=== PATIENT | female | born 1975 | race American Indian/Alaskan Native ===

== ENCOUNTER 2017-04-26 14:47 | Emergency (ER) | payer MEDICAID ==
[~2017-04-26] VITALS: Ht 162.6 cm; Wt 75.0 kg
[~2017-04-26 14:47] MED LIST: FERR325T20 PO
[2017-04-26] MEDS ORDERED: METR500T PO (15:37)
[2017-04-26] MEDS ORDERED: MECLIZINE CHEWABLE 25 MG TAB ONE (15:58)
[2017-04-26] MEDS ORDERED: SODIUM CHLORIDE 0.9% 1,000ML IVBOLUS ONE (16:00)
[2017-04-26 16:23] LABS: HEMATOCRIT 39.2 % (34.6-47.8); HEMOGLOBIN 12.8 g/dL (11.7-16.4); WHITE BLOOD COUNT 9.1 x10^3/uL (3.4-10)
[2017-04-26 16:31] LABS: BLOOD UREA NITROGEN 11 mg/dL (7-18)
[2017-04-26] MEDS ORDERED: POTASSIUM CHLORIDE 20 MEQ TAB.ER.PRT ONE (16:58)
[2017-04-26] MEDS ORDERED: MECLIZINE CHEWABLE 25 MG TAB PO ONE (17:00)
[2017-04-26] MEDS ORDERED: SODIUM CHLORIDE FLUSH 10ML SYR IVF ONE (17:00)
[2017-04-26] MEDS ORDERED: POTASSIUM CHLORIDE 10% 40 MEQ/30 ML UDC PO ONE (18:00)
[2017-04-26] MEDS ORDERED: MAGNESIUM SULFATE 1 GM in SODIUM CHLORIDE 0.9% 50 ML IV ONE (18:00)
[2017-04-26] MEDS ORDERED: POTASSIUM CHLORIDE 20 MEQ TAB.ER.PRT PO ONE (18:00)
[2017-04-26 18:23] VITALS: BP 100/58
== END 2017-04-26 18:25 | disposition home or self-care (01) ==
LOC: ED 15:56
DX: E86.0 Dehydration (principal); E87.6 Hypokalemia
CPT/HCPCS: 36415; 80048; 82040; 84703; 85025; 96361; 96365; 99284; J3475; J7030

== ENCOUNTER 2017-07-08 20:02 | Emergency (ER) | payer MEDICAID ==
[~2017-07-08] VITALS: Ht 162.6 cm; Wt 76.0 kg
[~2017-07-08 20:02] MED LIST changes: +FERR325T18 PO; -FERR325T20 PO; +METR500T PO
[2017-07-08 20:04] VITALS: BP 116/75
[2017-07-08 20:39] LABS: HCG UR LOT HCG7030192
[2017-07-08 20:59] LABS: HCG UR OBC PASS
[2017-07-08 21:13] LABS: HEMATOCRIT 37.5 % (34.6-47.8); HEMOGLOBIN 12.5 g/dL (11.7-16.4); WHITE BLOOD COUNT 8.2 x10^3/uL (3.4-10)
[2017-07-08 21:21] LABS: ASPARTATE AMINO TRANSFERASE 12 U/L (15-37); BLOOD UREA NITROGEN 16 mg/dL (7-18)
[2017-07-08] MEDS ORDERED: MAALOX/HYOSCYAMINE/LIDOCAINE 45 ML BTL PO ONE (22:00)
[2017-07-08] MEDS ORDERED: CEPHALEXIN 500 MG CAPSULE PO ONE (22:00)
[2017-07-08] MEDS ORDERED: SODIUM CHLORIDE FLUSH 10ML SYR IVF ONE (22:00)
[2017-07-08] MEDS ORDERED: MAALOX/HYOSCYAMINE/LIDOCAINE 45 ML BTL ONE (22:05)
[2017-07-08] MEDS ORDERED: CEPHALEXIN 500 MG CAPSULE ONE (22:10)
== END 2017-07-08 22:20 | disposition home or self-care (01) ==
LOC: ED 21:13
DX: K29.00 Acute gastritis without bleeding (principal)
CPT/HCPCS: 36415; 76700; 80053; 81003; 81025; 83690; 85025; 99285

== ENCOUNTER 2019-02-26 21:43 | Emergency (ER) | payer MEDICAID ==
[~2019-02-26] VITALS: Ht 162.6 cm; Wt 78.3 kg
[2019-02-26 22:20] LABS: HCG UR SG 1.012 (1.003-1.030); MICROSCOPIC NOT IND
[2019-02-26 22:23] LABS: CULTURE INDICATED? NO
--- NOTE | 2019-02-26 22:56 | NUR ---
FIRST CONTACT WITH PT. PT HERE FOR LOWER BACK AND ABD PAIN AND PAIN WITH URINATION THAT STARTED TODAY. PT'S AOX4. RESPS EVEN AND UNLABORED. PT DENIES N/V/D AT THIS TIME. BP/SPO2 MONITORS IN PLACE. CALL LIGHT WITHIN REACH.
--- NOTE | 2019-02-26 23:11 | NUR ---
PT TO CT NOW.
[2019-02-26 23:14] LABS: BASOPHILS # (AUTO) 0.09 x10^3/uL (0-0.1); BASOPHILS % (AUTO) 1 % (0-1); EOSINOPHILS # (AUTO) 0.34 x10^3/uL (0-0.4); EOSINOPHILS % (AUTO) 4 % (1-7); LYMPHOCYTES # (AUTO) 2.19 x10^3/uL (1-3.4); LYMPHOCYTES % (AUTO) 27 % (22-44); MD NO; MEAN CORPUSCULAR HEMOGLOBIN 25.3 pg (27.0-34.8); MEAN CORPUSCULAR HGB CONC 31.9 g/dL (32.4-35.8); MEAN CORPUSCULAR VOLUME 79.3 fL (80-100); MEAN PLATELET VOLUME 6.9 fL (7.4-10.4); MONOCYTES # (AUTO) 0.62 x10^3/uL (0.2-0.8); MONOCYTES % (AUTO) 8 % (2-9); NEUTROPHILS # (AUTO) 4.93 x10^3/uL (1.8-6.8); NEUTROPHILS % (AUTO) 60 % (42-75); PLATELET COUNT 496 x10^3/uL (130-400); RED BLOOD COUNT 4.21 x10^6/uL (3.82-5.3); RED CELL DISTRIBUTION WIDTH 14.5 % (9.6-15.2)
[2019-02-26 23:25] LABS: ALANINE AMINOTRANSFERASE 17 U/L (12-78); ALBUMIN 2.9 g/dL (3.4-5.0); ANION GAP 7 mmol/L (5-15); CALCIUM 8.4 mg/dL (8.5-10.1); CHLORIDE 112 mmol/L (98-107); CREATININE 1.47 mg/dL (0.55-1.02)
[2019-02-26 23:27] LABS: ALKALINE PHOSPHATASE 107 U/L (45-117); BILIRUBIN,TOTAL 0.1 mg/dL (0.2-1.0); TOTAL PROTEIN 8.1 g/dL (6.4-8.2)
[2019-02-26 23:50] VITALS: BP 108/69
--- NOTE | 2019-02-27 00:08 | NUR ---
EDMD AT BEDSIDE TO EXPLAIN ALL RESULTS AT THIS TIME. AWAITING DISPO
--- NOTE | 2019-02-27 00:19 | NUR ---
PT GIVEN DC INSTRUCTIONS. PT'S AOX4. RESPS EVEN AND UNLABORED. PT AMB TO DC WITH STEADY GAIT. NO ACUTE DISTRESS AT DC.
== END 2019-02-27 00:20 | disposition home or self-care (01) ==
LOC: ED 23:30
DX: N83.291 Other ovarian cyst, right side (principal)
CPT/HCPCS: 36415; 74176; 80053; 81003; 81025; 83690; 85025; 99284

== ENCOUNTER 2020-09-28 13:02 | Emergency (ER) | payer MEDICAID ==
[~2020-09-28] VITALS: Ht 162.6 cm; Wt 73.5 kg
[2020-09-28 13:27] VITALS: BP 113/69
[2020-09-28 14:24] LABS: CLUE CELLS NONE SEEN (NONE SEEN); WET PREP WBCS NONE SEEN (FEW)
== END 2020-09-28 16:12 | disposition home or self-care (01) ==
LOC: ED 15:30
DX: R10.2 Pelvic and perineal pain (principal); E87.6 Hypokalemia
CPT/HCPCS: 87210; 87491; 87591; 87808; 99284

== ENCOUNTER 2021-04-15 17:32 | Emergency (ER) | payer MEDICAID ==
[~2021-04-15] VITALS: Ht 162.6 cm; Wt 68.7 kg
--- NOTE | 2021-04-15 18:35 | NUR ---
PT AMBULATORY TO ROOM 31 W/ C/O LOWER BACK BODY ACHES AND SOB X 2 DAYS. PT DENIES ANY OTHER COVID SX. PT STATES SHE HAS RECEIVED BOTH COVID VACCINES. PT RESTING ON GURNEY. NADN. MONITORS APPLIED. VSS. WARM BLANKET PROVIDED. CALL LIGHT IN REACH.
[2021-04-15 18:42] LABS: BASOPHILS % (AUTO) 1 % (0-1); EOSINOPHILS % (AUTO) 4 % (1-7); LYMPHOCYTES % (AUTO) 22 % (22-44); MEAN PLATELET VOLUME 6.9 fL (7.4-10.4); MONOCYTES % (AUTO) 7 % (2-9); NEUTROPHILS % (AUTO) 67 % (42-75); PLATELET COUNT 454 x10^3/uL (130-400); RED BLOOD COUNT 4.71 x10^6/uL (3.82-5.3); RED CELL DISTRIBUTION WIDTH 18.5 % (9.6-15.2)
[2021-04-15 18:52] LABS: ANION GAP 9 mmol/L (5-15); CHLORIDE 114 mmol/L (98-107); CREATININE 1.62 mg/dL (0.55-1.02)
[2021-04-15 18:53] LABS: ALBUMIN 2.9 g/dL (3.4-5.0)
--- NOTE | 2021-04-15 19:16 | NUR ---
PT RESTING ON GURNEY. NADN. SMITH.
[2021-04-15] MEDS ORDERED: POTASSIUM CHLORIDE 40 MEQ in SODIUM CHLORIDE 0.9% 500 ML IV ONE (20:00)
[2021-04-15] MEDS ORDERED: POTASSIUM CHLORIDE 20 MEQ TAB.ER.PRT PO ONE (20:00)
--- NOTE | 2021-04-15 20:15 | NUR ---
YELLOW SLIP SENT TO PHARMACY FOR MEDS PER NOV.
[2021-04-15] MEDS ORDERED: POTASSIUM CHLORIDE 20 MEQ TAB.ER.PRT ONE (20:31)
--- NOTE | 2021-04-15 21:46 | NUR ---
PT RESTING ON GURNEY. NADN. SMITH.
--- NOTE | 2021-04-15 21:49 | NUR ---
REPORT GIVEN TO ADINA DEUTSCH.
--- NOTE | 2021-04-15 23:10 | NUR ---
Pt resting comfortably, denies needs, IV Potassium infusing. No pain at IV site.
[2021-04-15 23:59] LABS: ALBUMIN 2.8 g/dL (3.4-5.0); ANION GAP 7 mmol/L (5-15); CALCIUM 7.8 mg/dL (8.5-10.1); CHLORIDE 116 mmol/L (98-107)
[2021-04-16 00:01] LABS: CREATININE 1.53 mg/dL (0.55-1.02)
[2021-04-16 00:49] VITALS: BP 92/57
--- NOTE | 2021-04-16 00:50 | NUR ---
Patient/Caregiver given discharge instructions and they have confirmed that they understand the instructions. Patient ambulatory with steady gait. NAD, all questions answered appropriately, denies additional needs at this time. No personal belongings left in room after discharge.
== END 2021-04-16 00:51 | disposition home or self-care (01) ==
LOC: ED 22:43
DX: M62.831 Muscle spasm of calf (principal); E87.6 Hypokalemia; R94.31 Abnormal electrocardiogram [ECG] [EKG]
CPT/HCPCS: 36415; 71045; 80048; 82040; 85025; 93005; 96365; 96366; 99285; J3480; J7040